=== PATIENT | male | born 1985 | race Caucasian/White ===

== ENCOUNTER 2024-11-24 15:27 | Inpatient (IN) | payer OTHER, SELFPAY ==
[2024-11-24] VITALS (9 sets, daily range): BP systolic 106–163; BP diastolic 61–106; BMI 50.8; BMI 49.8
[2024-11-24 12:05] LABS: Hematocrit 48.1 % (39.0-52.0); Hemoglobin 16.6 g/dL (13.0-18.0); Mean Corp Hgb Conc. 34.5 g/dL (33.0-37.0); Mean Corpuscular Volume 84.4 fL (80.0-94.0); Platelet Count 281 10^3/uL (130-400); Red Cell Dist. Width 13.1 % (11.5-14.5)
[2024-11-24 12:15] LABS: Nucleated Red Blood Cells % 0 % (-)
[2024-11-24 12:16] LABS: ALT (SGPT) 60 U/L (0-50); AST (SGOT) 30 U/L (17-59); Albumin 4.9 g/dl (3.5-5.0); Alkaline Phosphatase 68 U/L (38-126); Blood Urea Nitrogen 17 mg/dl (9-20); Calcium 9.4 mg/dl (8.4-10.2); Carbon Dioxide 25 mmol/L (22-30); Chloride 102 mmol/L (98-107); Glucose 110 mg/dl (70-99); Potassium 4.6 mmol/L (3.5-5.1); Sodium 137 mmol/L (135-145); Total Protein 7.8 g/dl (6.3-8.2); eGFR > 60.00
[2024-11-24] MEDS: TYLENOL 1000 MG PO (13:16)
--- NOTE | 2024-11-24 14:24 | ED.GENMED ---
History of Present Illness
General
Chief Complaint: Skin Problem
Source: patient
Exam Limitations: none
Time Seen by Provider: 11/24/24 14:04
Nursing documentation reviewed up to this point in time: agreed with
History of Present Illness
History of Present Illness:
see MDM
Past History
Past History
ED Past Medical History: None
Social History
Tobacco: Non-smoker
Alcohol: None
Drug: None
Personal: Single
Living: with family
Employment: Employed
Review of Systems
Review of Systems
Allergies reviewed?: Yes
All Other Systems: Not applicable
Phy Exam
Physical Exam
Physical Exam:
GENERAL: Alert , in no appar sweating
EYE: pupils equal and reactive
NECK: Supple
ENT: o/p clr, mmm.
CARDIAC: Tachycardic
LUNGS: Clear breath sounds bilaterally, no acute respiratory distress, no wheezes/rales/rhonchi
ABDOMEN: Soft, without focal tenderness, no r/g, no cvat, normal bowel sounds
NEUROLOGICAL: Alert and oriented, no focal neuro deficits
SKIN: Warm and d moist, diaphoretic ry, as below
MUSCULOSKELETAL: Moderate edema left lower extremity with diffuse circumferential erythema inferior to the knee down to the ankle, sparing the foot, there is a area of fungal changes between the 4th and 5th toes, but there is no streaking erythema
from this area
Calf nontender
Normal pulse
PSYCH: Normal and appropriate interaction.
Sepsis
Sepsis Screening
Sepsis Assessment: Severe Sepsis
Sepsis Screening: Lactate >2mmol/L
Sepsis Screen
Sepsis Screen: Severe Sepsis
Date: 11/24/24
Time: 23:18
Course
Orders/Labs/Results
Orders:
Orders
11/24/24 11:42
Complete Blood Count/With Diff Urgent
Comprehensive Metabolic Panel Urgent
Glycohemoglobin (HgbA1c) Urgent
Lactic Acid Urgent
Blood Culture Urgent
JULY Source: Blood/Venous
Specimen Description:
11/24/24 13:14
Acetaminophen [Tylenol] 1,000 mg .ROUTE .STK-MED ONE
11/24/24 13:15
Acetaminophen [Tylenol] 1,000 mg PO NOW STA
11/24/24 14:19
Ibuprofen [Motrin] 800 mg PO NOW STA
11/24/24 14:20
Piperacillin/Tazo 3.375 Gram [Zosyn] 3.375 gram in 50 ml IV NOW
Venous Doppler Lwr Ext Left [US Periph Venous LOWER Ext LT] Urgent
Comment:
Reason For Exam: left leg swelling/redness
11/24/24 14:21
Vancomycin [Vancocin] 1,500 mg 0.9% Sodium Chloride 500 ml [Nss] 500 ml IV NOW
11/24/24 14:28
Blood Culture Urgent
JULY Source: Blood/Venous
Specimen Description:
11/24/24 Dinner
Regular
At Your Request: Full Participation
Does patient need a safe tray?: No
11/24/24 15:04
EKG [Electrocardiogram (*1)] Stat
Reason for Study: Tachycardia
11/24/24 15:10
Admit/Transfer Patient As Directed
Co-Sign Provider:
Level of Care: Inpatient admission
Assign to:: Telemetry
Physician / Group: Hospitalist
Diagnosis: Left leg cellulitis
Reason for Telemetry: Arrhythmia
Date to Stop Telemetry: 11/27/24
Time to Stop Telemetry: 11:00
Reason for Hospitalization: as above
Expected length of stay greater than two midnights?: Yes
ELOS- Estimated Length of Stay in days: 3
I certify the patient meets the requirements for IP care: Yes
PRN Pain Medication Management As Directed
May give lesser potent ordered pain med per pt: Yes
preference::
Protocol:: Medication orders for pain may be administered in a
manner that supports deferring to patient preference
when the pt is:
- Requesting an ordered lesser potent pain medication.
Least to most potent pain medications are defined
as: acetaminophen < NSAID < tramadol < opioids
(morphine, oxycodone, hydromorphone).
- Requesting a lesser dose of the same medication IF
ORDERED.
- Requesting a less intrusive route of administration
if both routes are prescribed by the provider (PO <
IV).
11/24/24 15:11
Code Status As Directed
Resuscitation Status: Full Code
11/24/24 15:15
Add On- LAB Routine
Tests Added?: A1C
11/24/24 15:33
0.9% Sodium Chloride 1000 ml [Nss] 1,000 ml IV 150 mls/hr
11/24/24 16:08
Lactic Acid Q4H
Comment: q4h x 4 or until less than 2 mmol/L
11/24/24 17:50
Acetaminophen [Tylenol] 650 mg PO Q4HPRN PRN
11/24/24 17:50
Activity As Directed
Activity Level: Out of Bed-Early Mobility
Elevate Extremity As Directed
Extremity:: Left leg
Elevate with:: Pillow
Frequency: Other
Other: at nighttime
Intake/ Output As Directed
Frequency: Per unit guidelines
Nursing to Place Non Medication Order As Directed
Physician Order: Chato borders of erythema (Left leg) to monitor for spread.
Above order entered?: Yes
Vital Signs As Directed
Frequency: Per unit guidelines
DX Deep Vein Thrombosis Video Routine
11/24/24 18:00
Enoxaparin Sodium [Lovenox] 40 mg SC QPM
11/24/24 19:04
MRSA Screen Routine
JULY Source: Nose
Specimen Description:
11/25/24 06:00
Basic Metabolic Panel IN AM
Complete Blood Count/With Diff IN AM
11/27/24 11:00
DC Protocol for Telemetry ONCE
Abnormal Lab Results
11/24/24
11:42
WBC 27.2 H 10^3/uL
(4.8-10.8)
Abs Immat Gran (auto) 0.2 H 10^3/uL
(0-0.05)
Absolute Neuts (auto) 24.3 H 10^3/uL
(1.4-6.5)
Absolute Monos (auto) 1.2 H 10^3/uL
(0.1-0.6)
Immature Gran % 0.7 H %
(0-0.5)
Neutrophils % 89.3 H %
(42.2-75.2)
Lymphocytes % 5.1 L %
(20.5-51.1)
Glucose 110 H mg/dl
(70-99)
Lactic Acid 2.9 H mmol/L
(0.7-2.0)
Total Bilirubin 1.8 H mg/dl
(0.2-1.3)
ALT 60 H U/L
(0-50)
11/24/24 11:42
11/24/24 11:42
Vital Signs
Initial and Last Documented VS:
Initial Vital Signs
Temp Pulse Resp BP Pulse Ox
39.2 C H 126 16 158/106 98
11/24/24 11:32 11/24/24 11:32 11/24/24 11:32 11/24/24 11:32 11/24/24 11:32
Last Documented Vital Signs
Temp Pulse Resp BP Pulse Ox
37.2 C 110 22 118/77 96
11/24/24 19:05 08/12/25 19:05 11/24/24 19:05 11/24/24 19:05 11/24/24 19:05
MDM/Problems Addressed
Differential Diagnosis Includes:
see MDM
MDM/Problems Addressed:
Note:
CHIEF COMPLAINT(S)
Redness and discomfort in the lower limb, high fever.
HISTORY OF PRESENT ILLNESS
The patient is a 39-year-old male who presented with redness and discomfort localized in the lower limb, accompanied by a high fever. He reports that the symptoms began this morning, with the redness on the bottom of his foot appearing today. Last
night, he experienced significant chills and shivering, suggestive of a fever, but specifics about the fevers exact temperature were not obtained.
Earlier today, he visited a medical clinic where he was advised to seek emergency care. Prior to last night, the patient noted no significant issue with his leg; he showered and wore shorts during the day and did not notice any redness or lesions.
No history of prolonged travel, blood clots, shortness of breath, cough, sore throat, diarrhea, or vomiting.
On examination, there was localized redness on the foot which could indicate an infection. The patient has no history of recent tick bites and reports no excessive pain but describes discomfort. He does not regularly require assistance to ambulate.
The patient had a previous minor episode of cellulitis which did not require hospitalization. He stated he consistently uses [id number] antifungal medication (likely referring to clotrimazole) for what he thought was athlete�s foot, but
symptoms did not improve.
PAST MEDICAL AND SURIGICAL HISTORY
Previous minor episode of cellulitis that did not require hospitalization.
SOCIAL HISTORY
The patient doesn�t smoke or have any history of substance use.
PHYSICAL EXAM
- Skin: Redness localized to the bottom of the foot.
- Nursing notes reviewed and vital signs reviewed.
PLAN
The patient will be admitted for intravenous antibiotic therapy due to suspicion of sepsis given high fever and rapid onset of symptoms. An ultrasound of the leg will be performed to rule out deep vein thrombosis, although clinical suspicion is low.
Intravenous fluids and ibuprofen will be given to manage fever.
DIFFERENTIAL DIAGNOSIS
The Differential Diagnosis includes, in no particular order and is not limited to:
1. Cellulitis
2. Deep vein thrombosis
3. Erysipelas
4. Contact dermatitis
5. Stasis dermatitis
6. Allergic reaction
7. Gout flare
8. Abscess formation
9. Septic arthritis
10. Osteomyelitis
Disposition:
SUMMARY OF ENCOUNTER
The patient, a 39-year-old male with no chronic medical issues, presented to the emergency department with a fever that began last night along with shaking chills persisting despite medication. This morning, he noticed left lower extremity
cellulitis, which progressed to involve more than half of the left lower extremity circumferentially over five to six hours. Despite the extensive area of involvement, the patient reported no significant pain, though he was febrile and tachycardic
upon presentation. Examination revealed diffuse erythema with slight soft tissue swelling in the left lower extremity, shared with normal pulses and an area between the fourth and fifth toes consistent with a fungal infection, but the foot was not
involved in cellulitis. Laboratory tests showed a white blood cell count of 27,000 with a left shift and a lactic acid level of 2.5, meeting the criteria for severe sepsis. Despite a high suspicion of cellulitis, necrotizing fasciitis was deemed
unlikely due to the lack of severe pain. Empirical treatment with intravenous antibiotics and piperacillin and tazobactam (Zosyn) was initiated after obtaining cultures.
DISPOSITION
Admit.
ASSESSMENT
The working diagnosis is severe cellulitis of the left lower extremity with systemic infection, given the high fever, leukocytosis, lactic acid elevation, and clinical presentation consistent with severe sepsis.
PLAN
The patient will be admitted for intravenous antibiotic therapy due to suspicion of sepsis given high fever and rapid onset of symptoms. An ultrasound of the leg will be performed to rule out deep vein thrombosis, although clinical suspicion is low.
Intravenous fluids and ibuprofen will be given to manage fever.
INDEPENDENT REVIEW OF LABS AND INTERPRETATION OF TESTS
My independent review of the CBC shows leukocytosis with a white blood cell count of 27,000 and a left shift.
My independent review of lactate indicates an elevated level of 2.5, consistent with sepsis.
PATIENT EDUCATION AND COUNSELING
The patient was informed about the diagnosis of severe cellulitis and the need for hospitalization to receive intravenous antibiotics. Educated about the signs of worsening infection and the importance of completing the full course of antibiotics.
Discussed prevention strategies for recurrent cellulitis, including proper foot hygiene and management of fungal infections.
MEDICATION RECONCILIATION
Empirical treatment with intravenous antibiotics and piperacillin and tazobactam (Zosyn) was administered.
MEDICAL DECISION MAKING
- Complexity of Data Reviewed: Severe cellulitis with systemic infection presenting as severe sepsis. Chronic conditions affecting care include a past minor cellulitis episode resolved with topical antifungal use.
DDx list includes Cellulitis, Deep vein thrombosis, Erysipelas, Contact dermatitis, Stasis dermatitis, Allergic reaction, Gout flare, Abscess formation, Septic arthritis, and Osteomyelitis.
- Data:
Category 1
- Tests: Independent review of CBC showed leukocytosis with a WBC of 27,000 with a left shift and lactate level 2.5.
- Ultrasound of the leg will be performed to rule out deep vein thrombosis.
Category 3
Discussion of management included the decision to admit the patient due to high risk of sepsis and initiate IV antibiotics after culture, discussed treatment and management with admitting hospital staff.
- Risk:
Decision to escalate care via hospitalization based on high risk due to severe sepsis and rapid progression of symptoms.
DIAGNOSIS
- Cellulitis, left lower extremity, severe (L03.116)
- Severe Sepsis (R65.20)
*Pulse Oximetry
SaO2: 95
Oxygen Mode of Delivery: Room air
Patient hypoxic: no (98)
*Critical Care Note
Total Time (30-74mins, 75-104mins- exclusive of procedures): Not Applicable
ED Attending Note
-
Portions of this chart may have been created with voice recognition software.� Occasional wrong word or��sound alike� substitutions may have occurred due to the inherent limitations of voice recognition software.
Discharge Plan
Departure
Patient Disposition: Admit
Date of Disposition: 11/24/24
Time of Disposition: 14:21
Admit to: Med/Surg
Presentation/result/management discussed w/ accepting MD/DO: Hospitalist
Patient with high blood pressure during this ER visit?: Yes
Condition: Fair
Discharge Problem:
Cellulitis, Sepsis
Interventions
Interventions:
*Risk Screen - Suicide Last Done: 11/24/24 11:34
*General Assessment Last Done: 11/24/24 14:16
*Neglect/Abuse Screening Last Done: 11/24/24 11:34
*ED- Fall Risk Assessment Last Done: 11/24/24 14:16
*ED COVID-19 Vaccine History Last Done: 11/24/24 14:16
*Nursing Disposition Last Done: 11/24/24 17:39
ED-Skin Assessment Last Done: 11/24/24 14:38
Discharge Date and Time
Discharge Date/Time: 11/24/24 17:40
[2024-11-24] MEDS: MOTRIN 800 MG PO (14:31)
[2024-11-24] MEDS: ZOSYN 50 IV (14:31)
--- NOTE | 2024-11-24 14:43 | HPS.HSE ---
Addendum entered and electronically signed by Wanda Parish MD 11/24/24 15:40:
This is an addendum to the H&P written by Mendoza Friedman on 11/24/2024. �Patient seen and examined independently with resident.
39-year-old male past medical history of cellulitis right leg presenting with fever, rigors, left lower extremity redness and swelling and pain starting today.
Vital signs show temperature 101.1. �Heart rate up�to 142.
Labs show leukocytosis of 27. �Lactic acid 2.9.
Patient with sepsis secondary to left lower extremity cellulitis.
Check blood cultures. �Check MRSA. �IV fluids. �Trend lactate.� Continue Vancomycin. Can likely de-escalate to cefazolin after MRSA screen and resolution of sepsis. �Check EKG.
Original Note:
Family Physician
-
Family Physician:
Chief Complaint
-
Left leg redness and swelling
History of Present Illness
This is a 39-year-old male with past medical history of cellulitis x2 (right thigh, right calf) who presents to the ED complaining of redness and mild swelling on his left lower leg as well as fever and chills. The patient reports last night he
began to experience fever, chills. He checked his temperature this morning which was 102 �F. In addition, he noticed erythema in the left lower leg accompanied with mild swelling that started this morning. Extremity is nontender to palpation. He
reports he went to the medical clinic where he was advised to come to the ED for evaluation. He denies recent travels, denies hx of DVT, denies shortness of breath, chest pain. He reports he went hiking last weekend with his daughter, and also
played mini golf on their farm yesterday. He did not notice any insect bite, denies trauma to the b/l legs. Pertinent to his history, he has had cellulitis twice in the past, on his right calf on his right thigh. At that time, cellulitis was
treated with oral antibiotics. With this new episode, he has not taken any medication for this. Upon presentation to the ED, BP 158/106, pulse 126, temperature 102.6 �F, respiratory rate 16, O2 sat 98% on room air. Laboratory showed WBC 27.2,
lactic acid 2.9. ALT 60, AST 30.
Medical History
Past Medical History
Past Medical History: Reports Other (Cellulitis)
Past Surgical History: Reports None
Social History
Tobacco: Non-smoker
Alcohol: None
Drug: None
Personal:
Living: With Family
Employment: Employed
Family History
Family History: Not pertinent
Allergies / Home Medications
Allergies reflects when Allergies were last updated in [facility].
Home Medications with original date entered in [facility]
Allergy/Medication List:
Allergies
Allergy/AdvReac Type Severity Reaction Status Date / Time
No Known Allergies Allergy Unverified 11/24/24 11:34
Home Medications
ibuprofen 200 mg tablet (Advil) 400 mg PO Q8HPRN PRN mild pain 11/24/24
Review of Systems
-
Constitutional: Reports Fever and Chills
EENT: Reports No Symptoms
Respiratory: Reports No Symptoms
Cardiac: Reports No Symptoms
Abdomen/GI: Reports No Symptoms
: Reports No Symptoms
Musculoskeletal: Reports No Symptoms
Skin: Reports See HPI
Physical Exam
Vital Signs
Vital Signs
Temp Pulse Resp BP Pulse Ox
101.1 F H 142 21 158/106 95
11/24/24 14:15 11/24/24 14:30 11/24/24 14:30 11/24/24 11:32 11/24/24 14:26
Physical Exam
General: Well Developed, Well Nourished and No Apparent Distress
HEENT: NormoCephalic and Anicteric
Respiratory: Clear; No Wheezes or Rales
Cardiac: S1/S2 and Regular Rhythm
GI: Soft, Non Tender, Non Distended and Normal Bowel Sounds
Skin: Other (Localized redness and warmth left lower extremity from below the knee to the ankle)
Neuro: Awake, Alert, Oriented and AO x 3
Psych: Calm
Laboratory Results
-
11/24/24 11:42
11/24/24 11:42
Laboratory Results
Lactic Acid 2.9 mmol/L (0.7-2.0) H 11/24/24 11:42
Total Bilirubin 1.8 mg/dl (0.2-1.3) H 11/24/24 11:42
AST 30 U/L (17-59) 11/24/24 11:42
ALT 60 U/L (0-50) H 11/24/24 11:42
Alkaline Phosphatase 68 U/L (38-126) 11/24/24 11:42
Impression/Plan
-
Assessment/plan
#Sepsis secondary to left lower extremity cellulitis.
-SIRS criteria met on presentation, fever 102.6, tachycardia 126
-Lactic acid elevated on presentation 2.9
-Zosyn, vancomycin administered in the ED
-Blood cultures were obtained in the ED
-Check MRSA
-Continue antibiotics with vancomycin, deescalate to cefazolin when MRSA screen returns
-Chato borders of erythema, monitor for spread
-Elevate affected extremity
-Check venous Doppler ultrasound
-Pain control as needed
-IVF
-Monitor temperature curve, WBC
CODE STATUS full code
DVT prophylaxis Lovenox
[2024-11-24] MEDS: VANCOCIN 530 MG IV (15:09)
[2024-11-24] MEDS: NSS 1000 IV ×2 (16:11→23:29)
[2024-11-24] MEDS: FLUSH (NSS) 1 FLUSH IV (16:12)
--- NOTE | 2024-11-24 18:00 | PTCARENOTE ---
pt admitted from ED AOx3 denies pain. sinus tach. LCTA B/L on RA. abd round obese. skin intact with the exception of left small toe scab. LLE red and warm to the touch. +PP B/L. CB in reach.
[2024-11-24] MEDS: LOVENOX 40 MG SC (18:23)
[2024-11-24] MEDS: VANCOCIN HCL 500 MG 100 IV (19:20)
--- NOTE | 2024-11-24 19:23 | PHA.VAN.IN ---
Assessment
- Assessment
Renal Function: Appears similar to baseline
AUC Dosing Plan
- Dosing Variables
Dosing Weight (kg): 157
Dosing CrCl (ml/min): 125
Vd coefficient (L/kg): 0.5
- Empiric Dosing
Initial / Loading Dose: 1500 MG ~1530 + 500 MG ~1900 = 2000 MG total loading dose
Maintenance Regimen: 1750 MG IV Q12H
Estimated AUC (mcg*h/mL): 457
Estimated Peak (mcg*h/mL): 30.7
Estimated Trough (mcg/ml): 10.4
Estimated Half Life (H): 6.4
- Monitoring
No levels ordered at this time: Consider levels in next few days
Pharmacokinetics Vancomycin I
- -
Patient Age: 39
Patient Sex: Male
Vancomycin Day #: 1
Indication: Skin And Soft Tissue
Requesting Provider: Dr Elder Donaldson, Resident
Height / Weight:
Height 5 ft 10 in
Actual Weight 157.306 kg
Pertinent Past Medical History: Past medical history of cellulitis x2 (right thigh, right calf)
- Vital Signs / Lab Results
Temp Pulse Resp BP Pulse Ox
98.6 F 106 20 119/72 96
11/24/24 18:19 11/24/24 18:19 11/24/24 18:19 11/24/24 18:19 11/24/24 18:19
Lab Results - Hematology
11/24/24
11:42
WBC 27.2 H
Lab Results - Chemistry
11/24/24
11:42
BUN 17
Creatinine 1.1
Albumin 4.9
11/24/24 11/24/24 11/24/24
11:42 16:08 19:15
Lactic Acid 2.9 H 1.5 Cancelled
11/24/24
23:15
Lactic Acid Cancelled
[2024-11-24] MEDS: TYLENOL 650 MG PO (23:33)
[2024-11-25] VITALS (7 sets, daily range): BP systolic 109–149; BP diastolic 60–97
[2024-11-25] MEDS: VANCOCIN 535 MG IV ×2 (05:20→17:21)
[2024-11-25] MEDS: NSS 1000 IV ×2 (08:10→14:41)
[2024-11-25] MEDS: TYLENOL 650 MG PO ×2 (08:11→19:18)
[2024-11-25 08:23] LABS: Blood Urea Nitrogen 14 mg/dl (9-20); Calcium 8.4 mg/dl (8.4-10.2); Carbon Dioxide 22 mmol/L (22-30); Chloride 106 mmol/L (98-107); Estimated Creatinine Clearance > 125 ml/min; Glucose 109 mg/dl (70-99); Potassium 4.0 mmol/L (3.5-5.1); Sodium 133 mmol/L (135-145); eGFR > 60.00
--- NOTE | 2024-11-25 08:34 | PHA.VAN.FU ---
Vancomycin Assessment / Plan
- Assessment
Renal Function: SCR Decreasing
In the past 24 hrs, patient has been: Febrile
- Dosing Plan
Continue: Vanc 1750mg Q12H
New Regimen Predicts: AUC (457), Peak (30.7), Trough (10.4)
- Monitoring Plan
No level(s) ordered at this time: consider levels in next few days
- Follow Up
Pharmacy will continue to follow.
Vancomycin Follow UP
- -
Patient Age: 39
Patient Sex: Male
Vancomycin Day #: 2
Indication: Skin And Soft Tissue
Requesting Provider: Dr Elder Donaldson, Resident
Pertinent Antimicrobial Allergies:
NKDA
Height / Weight:
Height 5 ft 10 in
Actual Weight 157.306 kg
Pertinent Past Medical History: BMI ~50
- Vital Signs / Lab Results
Temp Pulse Resp BP Pulse Ox
102 F H 122 16 149/97 93
11/25/24 07:20 11/25/24 07:20 11/25/24 07:20 11/25/24 07:20 11/25/24 08:09
Lab Results - Hematology
11/24/24
11:42
WBC 27.2 H
Lab Results - Chemistry
11/24/24 11/25/24
11:42 07:06
BUN 17 14
Creatinine 1.1 0.8
Estimated Creat Clear > 125
Albumin 4.9
11/24/24 11/24/24 11/24/24
11:42 16:08 19:15
Lactic Acid 2.9 H 1.5 Cancelled
11/24/24
23:15
Lactic Acid Cancelled
[2024-11-25 08:51] LABS: Hematocrit 39.4 % (39.0-52.0); Hemoglobin 13.4 g/dL (13.0-18.0); Mean Corp Hgb Conc. 34.0 g/dL (33.0-37.0); Mean Corpuscular Volume 85.1 fL (80.0-94.0); Nucleated Red Blood Cells % 0 % (-); Platelet Count 200 10^3/uL (130-400); Red Cell Dist. Width 13.2 % (11.5-14.5)
[2024-11-25 11:06] LABS: Glycohemoglobin (HgbA1c) 5.2 % (4.0-5.6)
--- NOTE | 2024-11-25 11:08 | W.PN.HOSP.TC ---
Addendum entered and electronically signed by Theresa Gamez MD 11/25/24 11:26:
correction:
Now on Abx Ancef and Vanc
Original Note:
Today's Communication/Plan
-
see A/P
Assessment / Plan
Assessment / Plan
HPI: 39-year-old male with past medical history of cellulitis x2 (right thigh, right calf) who presented to the ED complaining of redness and mild swelling on his left lower leg as well as fever (102F) and chills.
He first went to the medical clinic where he was advised to come to the ED for evaluation.
He denies recent travels, denies hx of DVT, denies shortness of breath, chest pain. He reports he went hiking last weekend with his daughter, and also played mini golf on their farm the day [employer]. He did not notice any insect bite, denies trauma to
the b/l legs.
A/P:
# Sepsis POA secondary to left lower extremity cellulitis.
# Resolved mild lactic acidosis
# suspect reactive transaminitis
Follow blood cultures
MRSA screen was sent, follow up
Cont empiric Zosyn, vancomycin
Monitor cellulitis
LLE US negative for DVT
Pain control as needed
Monitor LFT
# Mild hyponatremia
# Morbid obesity
BMI 49
CODE STATUS full code
DVT prophylaxis Lovenox
Anticipated Discharge: 24 - 48 hours
Subjective/Interval History
-
Date of Service: November 25, 2024
Objective Data
-
Labs:
Laboratory Results
11/25/24
07:06
WBC 17.0 H
Hgb 13.4
Hct 39.4
Plt Count 200 D
Sodium 133 L
Potassium 4.0
Chloride 106
Carbon Dioxide 22
BUN 14
Creatinine 0.8
Glucose 109 H
Calcium 8.4
Vital Signs:
Vital Signs
Temp Pulse Resp BP Pulse Ox
37.8 C 122 16 149/97 93
11/25/24 10:06 11/25/24 07:20 11/25/24 07:20 11/25/24 07:20 11/25/24 08:09
I&O
11/24/24 11/25/24 11/26/24
06:59 06:59 06:59
Intake Total 480 / 480
Balance 480 / 480
Review of Systems
-
History Source: Patient
Skin: Reports Rash (LLE redness)
Physical Exam
-
General: Well Developed, Well Nourished, No Apparent Distress, Comfortable, Conversant and Morbidly Obese; Negative Respiratory Distress
HEENT: Normocephalic, Atraumatic, Nose Appears Normal and Ears Appear Normal; Negative Oxygen
Respiratory: Clear to Auscultation and Non Labored Respirations; Negative Accessory Resp Muscle Use
Cardiac: Regular Rhythm and S1/S2
GI: Soft, Nontender, Nondistended and Normal Bowel Sounds
Skin: Warm and Rash (LLE rash)
Neuro: Awake, Alert, Oriented and AO x 3
Psych: Calm and Intact Judgement/Insight
Data Reviewed
-
Ultrasound: Report Reviewed by me
Labs: Labs Reviewed by me
[2024-11-25] MEDS: ANCEF 10 IV ×2 (11:56→19:18)
[2024-11-25] MEDS: FLUSH (NSS) 1 FLUSH IV ×2 (11:56→17:21)
--- NOTE | 2024-11-25 16:08 | PTCARENOTE ---
Pt AAO x3, MANJARREZ; OOB to BR; no c/o weakness/dizziness. VSS. Telemetry:NSR/sinus tachy to 120's with OOB activity. On room air- pulse ox 97%. Abd obese, soft, davian PO well. Voids in BR without difficulty. LLE reddened with rash; area circled, pt
keeping LLE elevated on pillow. No c/o discomfort LLE. IVF's NSS @ 150 ml/hr infusing via Rt AC site without sx of infiltration. Resting in bed at present. Will continue to monitor.
--- NOTE | 2024-11-25 16:09 | CM ---
Alert awake oriented patient who lives with his 7 yo dgt Ivan who lives in a 2 story home with 1 step to enter and 14 steps to bed and bathroom. He is independent in driving and in all activities of daily living.He was offered VN he declined need.
No adaptive devices.
No VN hx / No SNF history
Pharmacy [facility] Sever[facility] Thornton
PCP DR Sandy candelario
PLAN Home Declined VN
[2024-11-25] MEDS: LOVENOX 40 MG SC (17:20)
[2024-11-26 03:36] VITALS: BP 144/81
[2024-11-26] MEDS: ANCEF 10 IV ×3 (05:12→19:39)
[2024-11-26] MEDS: VANCOCIN 535 MG IV (05:13)
[2024-11-26 07:23] VITALS: BP 152/86
[2024-11-26 08:25] LABS: Hematocrit 40.7 % (39.0-52.0); Hemoglobin 13.5 g/dL (13.0-18.0); Mean Corp Hgb Conc. 33.2 g/dL (33.0-37.0); Mean Corpuscular Volume 86.4 fL (80.0-94.0); Nucleated Red Blood Cells % 0 % (-); Platelet Count 193 10^3/uL (130-400); Red Cell Dist. Width 13.2 % (11.5-14.5)
[2024-11-26 09:13] LABS: ALT (SGPT) 50 U/L (0-50); AST (SGOT) 25 U/L (17-59); Albumin 3.4 g/dl (3.5-5.0); Alkaline Phosphatase 50 U/L (38-126); Blood Urea Nitrogen 10 mg/dl (9-20); Calcium 8.5 mg/dl (8.4-10.2); Carbon Dioxide 25 mmol/L (22-30); Chloride 108 mmol/L (98-107); Estimated Creatinine Clearance > 125 ml/min; Glucose 104 mg/dl (70-99); Magnesium 2.3 mg/dl (1.6-2.3); Potassium 4.4 mmol/L (3.5-5.1); Sodium 137 mmol/L (135-145); Total Protein 6.0 g/dl (6.3-8.2); eGFR > 60.00
[2024-11-26 11:46] VITALS: BP 137/83
--- NOTE | 2024-11-26 14:31 | W.PN.HOSP.TC ---
Today's Communication/Plan
-
Discontinue vancomycin, continue cefazolin
Assessment / Plan
Assessment / Plan
HPI: 39-year-old male with past medical history of cellulitis x2 (right thigh, right calf) who presented to the ED complaining of redness and mild swelling on his left lower leg as well as fever (102F) and chills found to have cellulitis.
A/P:
# Sepsis secondary to left lower extremity cellulitis.
So far blood cultures no growth to date
MRSA screen negative, discontinue vancomycin
Cont empiric cefazolin
Monitor cellulitis
LLE US negative for DVT
Pain control as needed
Monitor LFT
# Mild hyponatremia
Resolved
# Morbid obesity
BMI 49, plan lifestyle modification
CODE STATUS full code
DVT prophylaxis Lovenox
Anticipated Discharge: 24 - 48 hours
Subjective/Interval History
-
Date of Service: November 26, 2024
Patient thinks his leg is feeling better
Objective Data
-
Labs:
Laboratory Results
11/26/24
07:01
WBC 9.6
Hgb 13.5
Hct 40.7
Plt Count 193
Sodium 137
Potassium 4.4
Chloride 108 H
Carbon Dioxide 25
BUN 10
Creatinine 0.8
Glucose 104 H
Calcium 8.5
Total Bilirubin 0.8 D
AST 25
ALT 50
Alkaline Phosphatase 50
Vital Signs:
Vital Signs
Temp Pulse Resp BP Pulse Ox
98.4 F 95 20 137/83 95
11/26/24 11:46 11/26/24 11:46 11/26/24 11:46 11/26/24 11:46 11/26/24 11:46
I&O
11/25/24 11/26/24 11/27/24
06:59 06:59 06:59
Intake Total 480 / 480 3875 / 3875
Balance 480 / 480 3875 / 3875
Review of Systems
-
All other systems: Reviewed and negative
Physical Exam
-
General: No Apparent Distress
HEENT: Moist Mucous Membranes, Anicteric and PERRLA
Respiratory: Clear to Auscultation; Negative Wheezes, Rales or Rhonchi
Cardiac: Regular Rhythm and S1/S2; Negative Murmur, Rub or Gallop
GI: Soft, Nontender, Nondistended and Normal Bowel Sounds
Musculoskeletal: No Edema
Skin: Warm, Dry and Rash (left leg erythema/cellulitis within drawn border); Negative Ulcers or Lesions
Neuro: Awake and AO x 3
Hematologic / Lymphatic: No Lymphadenopathy
Psych: Calm
Data Reviewed
-
Labs: Labs Reviewed by me
[2024-11-26 15:22] VITALS: BP 137/84
[2024-11-26 16:20] VITALS: BP 137/84
--- NOTE | 2024-11-26 16:37 | CM ---
Spoke with patient in room .
He said that ID came to see him and he needs additional days of IV antibiotics.
ID changed IV antibiotics.
PLAN Home no anticipated needs
[2024-11-26] MEDS: TYLENOL 650 MG PO (17:00)
[2024-11-26] MEDS: LOVENOX 40 MG SC (17:00)
[2024-11-26 23:29] VITALS: BP 127/83
[2024-11-27] MEDS: ANCEF 10 IV ×2 (03:45→11:38)
[2024-11-27 07:55] VITALS: BP 130/83
--- NOTE | 2024-11-27 12:49 | W.DCSUMMARY ---
Discharge Summary
Discharge Data
Date of Admission: 11/24/24
Date of Discharge: 11/27/24
Total time spent discharging patient (in min): 35
-
Pending Results: No
Hospital Course
Disposition :
Home
Primary care physician :
None
Principal Discharge diagnosis :
Sepsis, cellulitis
Chronic Discharge diagnosis :
Obesity
Hospital Course :
39M with history of cellulitis presenting with sepsis secondary to LLE cellulitis. He was treated with broad-spectrum antibiotics vancomycin and Zosyn, as well as sepsis protocol. MRSA screen was negative and blood cultures were negative x 2,
antibiotics were de-escalated to cefazolin. He had improvement in leukocytosis, fever, and extent of his cellulitis. He was transition to oral cephalexin 500 mg 4 times daily to complete his course.
General: No Apparent Distress
HEENT: Moist Mucous Membranes, Anicteric and PERRLA
Respiratory: Clear to Auscultation; Negative Wheezes, Rales or Rhonchi
Cardiac: Regular Rhythm and S1/S2; Negative Murmur, Rub or Gallop
GI: Soft, Nontender, Nondistended and Normal Bowel Sounds
Musculoskeletal: No Edema
Skin: Warm, Dry and Rash (left leg erythema/cellulitis within drawn border); Negative Ulcers or Lesions
Neuro: Awake and AO x 3
Hematologic / Lymphatic: No Lymphadenopathy
Psych: Calm
Discharge Plan
-
Patient Disposition: Home (Routine Discharge)
Discharge Diagnosis/Procedures: Sepsis Cellulitis
Diet: Regular
Activity: No restrictions
Driving Restrictions: As prior to admission
Bathing Restrictions: None
Activity Restrictions/Additional Instructions:
Please find a primary care physician to start seeing for an annual appointment. If you like, you can call [facility]
Address: [address] [place] [address] [id number] [place] [address]

Instructions: Sepsis in adults, Cellulitis (skin infection) in adults - Discharge instructions
Referrals:
NONE,* [Family Provider, Internal Medicine]
Prescriptions:
New
cephalexin 500 mg capsule
500 mg PO QID 4 Days Qty: 16 0RF
Discontinued
ibuprofen [Advil] 200 mg Tablet
400 mg PO Q8HPRN PRN (Reason: mild pain)
Discharge Orders:
Discharge Patient (As Directed); Ordered 11/27/24
Ordered By: Darlin Suero
Discharge Date and Time
Print Language: NEPALI
[2024-11-27 13:39] VITALS: BP 168/88
--- NOTE | 2024-11-27 14:44 | CM ---
MD entered order for discharge.
Pt agreeable with discharge.
Pt had friend drive him home.
PLAn Home no needs
== END 2024-11-27 14:22 | disposition home or self-care (01) | DRG 872 ==
LOC: 4 EAST ACU 15:27
PROVIDERS: Internal Medicine; Student in an Organized Health Care Education/Training Program; ADMITTING PHYSICIAN Hospitalist; ATTENDING PHYSICIAN Internal Medicine; EMERGENCY PHYSICIAN Emergency Medicine
DX: A41.9 Sepsis, unspecified organism (principal); L03.116 Cellulitis of left lower limb; Z68.42 Body mass index [BMI] 45.0-49.9, adult; E87.1 Hypo-osmolality and hyponatremia; E66.01 Morbid (severe) obesity due to excess calories
CPT/HCPCS: 80048; 80053; 83036; 83605; 83735; 85025; 87040; 87070; 93005; 93971; 96374; 96375; 99285